=== PATIENT | male | born 1990 | race American Indian/Alaskan Native ===

== ENCOUNTER 2017-09-20 16:38 | Emergency (ER) | payer OTHER ==
[2017-09-20 16:53] VITALS: RESP 18; TEMP 98.2; O2SAT 98
--- NOTE | 2017-09-20 17:38 | C.PDOC ---
History Of Present Illness R FOOT LESION X 2 DAYS. INITIAL BLISTER FORMATION NEAR ARCH OF FOOT, NOW W SCATTERED RED LESIONS ALONG INSIDE OF FOOT. PAIN TO AREA. PS ALOT OF WALKING AT WORK, WEAR BOOTS SIZE BIGGER W THICK SOCKS. BLISTER UNCH IN APPEARANCE SINCE STARTED. DENIES RECENT INJURY TO ANKLE/LEG. DENIES HO DM. NO OTHER ASSOC SX EXAM NAD EXT L FOOT WNL. R LEG/ANKLE/FOOT: ATRAUM, NO SWELL DEFORM. NO FOCAL TEND SKIN R FOOT +<2 CM CUTANEOUS LESION ABOVE ARCH OF FOOT W LOCAL FLUCTUANCE BUT NO TEND, ERYTHEMA. SKIN KERATINIZED. LESION ROUND, WELL CIRCUMSCRIBED. Time Seen by Provider: 09/20/17 16:55 Chief Complaint (Nursing): Abnormal Skin Integrity History Per: Patient Onset/Duration Of Symptoms: Days (2) Past Medical History Reviewed: Historical Data, Nursing Documentation, Vital Signs Vital Signs: Last Vital Signs Temp 98.2 F 09/20/17 16:51 Pulse 89 09/20/17 19:59 Resp 18 09/20/17 19:59 BP 120/75 09/20/17 19:59 Pulse Ox 98 09/20/17 19:59 Family History: States: No Known Family Hx - Social History Hx Alcohol Use: Yes Hx Substance Use: No - Immunization History Hx Tetanus Toxoid Vaccination: No Hx Influenza Vaccination: No Hx Pneumococcal Vaccination: No Review Of Systems Except As Marked, All Systems Reviewed And Found Negative. Constitutional: Negative for: Fever Gastrointestinal: Negative for: Vomiting Musculoskeletal: Positive for: Other ((+) Right foot lesion. Scattered red lesions.). Negative for: Back Pain, Leg Pain Neurological: Negative for: Weakness, Numbness Physical Exam - Physical Exam Appears: Non-toxic, No Acute Distress Skin: Warm, Dry, No Rash, Other (Right Foot - +<2cm cutaneous lesion above arch of foot with local fluctuance but no tenderness or erythema. Skin keratinized. Lesion is round and well circumscribed. ) Head: Atraumatic, Normacephalic Respiratory: Normal Breath Sounds Extremity: Other (Left foot, normal. Right leg/ankle/foot, ATRAUM. No swelling. No deformity. No focal tenderness.) ED Course And Treatment O2 Sat by Pulse Oximetry: 98 (RA) Pulse Ox Interpretation: Normal Progress - Re-Evaluation Re-evaluation Note: 09/20/17 17:35 PENDING PODIATRY 09/20/17 17:45 PENDING PODIATRY 09/20/17 18:03 D/W PODIATRY RESIDENT WILL EVAL IN 30 MINS Disposition - Disposition Disposition: HOME/ ROUTINE Disposition Time: 19:00 Condition: GOOD Prescriptions: Amoxicillin/Clavulanate [Augmentin 875 MG-125 MG] 1 tab PO BID #20 tab Bacitracin Ointment [Bacitracin] 30 gm TOP BID #1 tube Instructions: Cellulitis (ED) Forms: [facility] (Montenegrin), Work Excuse - Clinical Impression Clinical Impression: Foot lesion - Scribe Statement The provider has reviewed the documentation as recorded by the Scribe Ella Adler Provider Attestation: Ella Adler All medical record entries made by the Scribe were at my direction and personally dictated by me. I have reviewed the chart and agree that the record accurately reflects my personal performance of the history, physical exam, medical decision making, and the department course for this patient. I have also personally directed, reviewed, and agree with the discharge instructions and disposition. Physician Patient Turnover Patient Signed Over To: Ben Urbano Handoff Comments: [facility], DISPO
[2017-09-20 19:59] VITALS: BP 120/75; PULSE 89
--- NOTE | 2017-09-20 21:29 | CP.PCM.CON ---
History of Present Illness - History of Present Illness History of Present Illness: 27 yo male patient who denies of any PMHx presents to ED with painful blisters to Right plantar foot. Patient states that he first noticed the pain and blisters to bottom of his right foot 4 days ago from today. He denies of any trauma, and complains of mild pain to arch of his right foot where a small blister is found. He denies of any bleeding from right foot. Patient denies of any bug bites or recent travel outside of country. Patient states that he still has pain when the rght plantar foot is palpated but the pain is mild and not sharp. He states that he is on his feet a lot from his work is suspects the blisters are from wearing shoes for along time. Patient was advised that the blisters and rashes appear to be different from mechanical abrasion. Patient denies of any N/V/F/C or SOB today Review of Systems - Constitutional Constitutional: As Per HPI Past Patient History - Past Social History Smoking Status: Never Smoked - PSYCHIATRIC Hx Substance Use: No - SURGICAL HISTORY Hx Surgeries: Yes Other/Comment: abd abscess - ANESTHESIA Hx Anesthesia: Yes Hx Anesthesia Reactions: No Hx Malignant Hyperthermia: No Meds Home Medications: Home Medication List Medication Instructions Recorded Confirmed Type Amoxicillin/Clavulanate [Augmentin 1 tab PO BID #20 tab 09/20/17 Rx 875 MG-125 MG] Bacitracin Ointment [Bacitracin] 30 gm TOP BID #1 tube 09/20/17 Rx Allergies/Adverse Reactions: Allergies Allergy/AdvReac Type Severity Reaction Status Date / Time No Known Allergies Allergy Verified 09/20/17 16:53 Physical Exam - Constitutional Appears: Well, Non-toxic, No Acute Distress - Head Exam Head Exam: ATRAUMATIC - Eye Exam Eye Exam: EOMI - Extremities Exam Additional comments: Right lower extremity exam DERM: No open wound is noted. Multiple small blisters noted to plantar aspect of right foot arch each measuring less than 1cm x 1cm. Multiple skin lesions consistent with rashes noted diffusely to plantar aspect of right foot each measuring 0.1cm x 0.1cm. No erythema is noted. No swelling noted. No drainage is noted. No malodor noted. No sign of acute infection is noted. No ecchymosis. Interdigital maceration noted to Right 3rd interdigital space. No probe to bone noted. No active drainage noted. No erythema noted VASC: Palpable Dp and Pt noted bilaterally 2/4. 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 NEURO: Gross sensation intact to bilateral feet ORTHO: Pain on palpation noted to right plantar arch of foot, over the blister. - Neurological Exam Neurological exam: Alert, Oriented x3 - Psychiatric Exam Psychiatric exam: Normal Affect, Normal Mood - Skin Skin Exam: Normal Color, Warm Results - Vital Signs Recent Vital Signs: Last Vital Signs Temp 98.2 F 09/20/17 16:51 Pulse 89 09/20/17 19:59 Resp 18 09/20/17 19:59 BP 120/75 09/20/17 19:59 Pulse Ox 98 09/20/17 19:59 Assessment & Plan - Assessment and Plan (Free Text) Assessment: 27 yo male patient presenting with right foot bacterial infection consistent with Impetigo Plan: Patient was seen and evaluated labs and vitals reviewed Patient's right foot applied with Betadine to 3rd interdigital space, Bacitracin to plantar foot, DSD Rx for Bacitracin ointment given to the patient per ED Rx for Augmentin given to the patient per ED Patient was educated on dressing changes, to keep it clean, dry and intact Patient advised to come to [facility] pod[facility]ry clinic
== END 2017-09-20 20:00 | disposition home or self-care (01) ==
LOC: C.ER 16:38
DX: L98.8 Other specified disorders of the skin and subcutaneous tissue (principal)